=== PATIENT | male | born 1970 | race African-American/Black ===

== ENCOUNTER 2018-12-22 19:11 | Emergency (ER) | payer MEDICAID ==
[~2018-12-22] VITALS: Ht 177.8 cm; Wt 73.0 kg
[2018-12-22] MEDS ORDERED: TETANUS, DIPHTHERIA, PERTUSSIS VAC/PF 0.5ML (>7YR OLD) IM ONE (21:00)
[2018-12-22] MEDS ORDERED: BACITRACIN ZINC OINT UDPKT TOP ONE (21:30)
[2018-12-22] MEDS ORDERED: LIDOCAINE HCL/PF 1% 10 MG/ML 5ML VIAL IJ ONE (21:30)
[2018-12-22] MEDS ORDERED: BACITRACIN 15GM TUBE TOP SCH (22:00)
[2018-12-22] MEDS ORDERED: CEPHALEXIN 250MG CAPSULE PO ONE (22:00)
[2018-12-22 22:38] VITALS: BP 160/91
== END 2018-12-22 22:40 | disposition home or self-care (01) ==
LOC: ER 19:11
DX: S61.512A Laceration without foreign body of left wrist, initial encounter (principal); I10 Essential (primary) hypertension; F41.9 Anxiety disorder, unspecified; W26.8XXA Contact with other sharp object(s), not elsewhere classified, initial encounter; Y93.55 Activity, bike riding; Y92.89 Other specified places as the place of occurrence of the external cause
CPT/HCPCS: 12002; 73110; 90471; 90715; 99283; J3490

== ENCOUNTER 2022-02-04 07:38 | Emergency (ER) | payer OTHER ==
[~2022-02-04] VITALS: Ht 175.3 cm; Wt 81.0 kg
[2022-02-04] MEDS ORDERED: IPRATROPIUM BROMIDE (0.02%) 0.5MG/2.5ML NEB HHN STA (07:59)
[2022-02-04] MEDS ORDERED: METHYLPREDNISOLONE SOD SUCC 125 MG/2 ML VIAL IV STA (07:59)
[2022-02-04] MEDS ORDERED: ALBUTEROL (0.083%) 2.5MG/3ML NEB HHN STA (07:59)
[2022-02-04] MEDS ORDERED: NITROGLYCERIN 0.1MG/HR PATCH TOP NR (08:45)
[2022-02-04] MEDS ORDERED: HYDRALAZINE 20MG/ML VIAL IV SCH (08:45)
[2022-02-04] MEDS ORDERED: NITROGLYCERIN OINT 1GM/INCH UDPKT TD SCH (08:45)
[2022-02-04] MEDS ORDERED: FUROSEMIDE 40MG/4ML VIAL IV NR (08:45)
[2022-02-04 09:14] LABS: BASOPHILS % 0.9 % (0.0-2.0); EOSINOPHILS % 0.8 % (0.0-5.0); HEMATOCRIT. 32.4 % (42.0-52.0); HEMOGLOBIN. 10.5 g/dL (14.0-18.0); LYMPHOCYTES % 19.4 % (20.0-50.0); MEAN CORPUSCULAR HEMOGLOBIN 27.1 pg (28.0-32.0); MEAN CORPUSCULAR VOLUME 83.4 fL (80.0-94.0); MEAN PLATELET VOLUME 7.6 fl (7.4-10.4); MONOCYTES % 13.1 % (2.0-8.0); NEUTROPHILS % 65.8 % (40.0-76.0); PLATELET 216 x1000/uL (130-400); RED BLOOD CELL COUNT 3.89 mill/uL (4.7-6.1)
[2022-02-04 09:22] LABS: CHLORIDE 100 mEq/L (98-107)
[2022-02-04 10:06] LABS: CLARITY URINE CLEAR (CLEAR); COLOR URINE YELLOW (YELLOW); KETONES URINE NEGATIVE (NEGATIVE); LEUKOCYTE ESTERASE URINE NEGATIVE (NEGATIVE); NITRITE URINE NEGATIVE (NEGATIVE); OCCULT BLOOD URINE TRACE (NEGATIVE); PROTEIN URINE 1+ (NEGATIVE); SPECIFIC GRAVITY URINE 1.009 (1.005-1.030)
[2022-02-04] MEDS ORDERED: ONDANSETRON HCL 4MG/2ML INJ IV ONE (11:00)
[2022-02-04] MEDS ORDERED: MORPHINE SULFATE 4 MG/ML CPJ (NOT FOR IM USE) IV ONE (11:00)
[2022-02-04] MEDS ORDERED: HYDRALAZINE 20MG/ML VIAL IV ONE (15:30)
[2022-02-04 16:40] VITALS: BP 178/125
== END 2022-02-04 16:43 | disposition short-term general hospital (02) ==
LOC: ER 07:38 → EDBEDREQ 10:04 → CANBEDREQ 10:59 → ER 16:43
DX: I21.3 ST elevation (STEMI) myocardial infarction of unspecified site (principal); I10 Essential (primary) hypertension; N17.9 Acute kidney failure, unspecified; F17.200 Nicotine dependence, unspecified, uncomplicated; F12.10 Cannabis abuse, uncomplicated; R06.02 Shortness of breath; J45.909 Unspecified asthma, uncomplicated; Z20.822 Contact with and (suspected) exposure to COVID-19
CPT/HCPCS: 36415; 71045; 80053; 81003; 83735; 83880; 84484; 85025; 87426; 87804; 93005; 93970; 94640; 96374; 96375; 96376; 99285; C9803; J0360; J1940; J2270; J2405; J2930; Z7610

== ENCOUNTER 2022-03-09 14:08 | Inpatient (IN) | payer OTHER ==
[~2022-03-09] VITALS: Ht 175.3 cm; Wt 66.2 kg
[2022-03-09] MEDS ORDERED: ASPIRIN 81MG TABLET PO ONE (14:45)
[2022-03-09] MEDS ORDERED: LABETALOL HCL VIAL 20 MG/4 ML VIAL IV ONE ×2 (15:00→17:00)
[2022-03-09] MEDS ORDERED: LABETALOL 5MG/ML SYR 20 MG/4 ML SYRINGE IV NR ×2 (15:00→17:15)
[2022-03-09 15:08] LABS: BASOPHILS % 0.8 % (0.0-2.0); CHLORIDE 107 mEq/L (98-107); EOSINOPHILS % 1.1 % (0.0-5.0); HEMATOCRIT. 32.2 % (42.0-52.0); HEMOGLOBIN. 10.4 g/dL (14.0-18.0); MEAN CORPUSCULAR HEMOGLOBIN 25.4 pg (28.0-32.0); MEAN CORPUSCULAR VOLUME 78.7 fL (80.0-94.0); MEAN PLATELET VOLUME 7.4 fl (7.4-10.4); MONOCYTES % 10.2 % (2.0-8.0); NEUTROPHILS % 62.9 % (40.0-76.0); PLATELET 371 x1000/uL (130-400); RED BLOOD CELL COUNT 4.09 mill/uL (4.7-6.1); RED CELL DISTRIBUTION WIDTH 16.9 % (11.6-14.6)
[2022-03-09 15:14] LABS: D-DIMER 1.29 mg/L FEU (<0.50); INR 1.1; PARTIAL THROMBOPLASTIN TIME 23.5 sec (23.4-31.0); PROTHROMBIN TIME 11.8 sec (9.6-11.0)
[2022-03-09] MEDS ORDERED: FUROSEMIDE 100MG/10ML VIAL IVP ONE (16:15)
[2022-03-09] MEDS ORDERED: IPRATROPIUM/ALBUTEROL 0.5-3(2.5)MG/3ML NEB HHN PRN (19:00)
[2022-03-09] MEDS: AMLODIPINE 10MG TABLET PO SCH (19:16)
[2022-03-09 20:54] LABS: BG BASE EXCESS -2.7 mmol/L (-2.0-2.0); BG CARBOXYHEMOGLOBIN 0.6 % (0.5-1.5); BG DEOXYHEMOGLOBIN 6.9 % (0.0-5.0); BG METHEMOGLOBIN 0.6 % (0.0-1.5); BG OXYHEMOGLOBIN 91.9 % (94.0-97.0); BG PCO2 32.8 mmHg (35.0-45.0); BG PH 7.425 (7.350-7.450); BG PO2 70.6 mmHg (75.0-100.0); BG SAMPLE SITE RIGHT RADIAL; BG TOTAL HEMOGLOBIN 10.4 g/dL (12.0-18.0); BG VENT MODE ROOM AIR
[2022-03-09 20:54] LABS: BASOPHILS % 0.6 % (0.0-2.0); HEMOGLOBIN. 9.4 g/dL (14.0-18.0); LYMPHOCYTES % 23.3 % (20.0-50.0); MEAN CORPUSCULAR HEMOGLOBIN 25.6 pg (28.0-32.0); MEAN CORPUSCULAR VOLUME 79.2 fL (80.0-94.0); MONOCYTES % 8.1 % (2.0-8.0); PLATELET 332 x1000/uL (130-400); RED BLOOD CELL COUNT 3.66 mill/uL (4.7-6.1); RED CELL DISTRIBUTION WIDTH 17.2 % (11.6-14.6)
[2022-03-09 21:08] LABS: CHLORIDE 104 mEq/L (98-107)
[2022-03-10] VITALS (7 sets, daily range): BP systolic 112–182; BP diastolic 66–129
[2022-03-10] MEDS: HYDRALAZINE 20MG/ML VIAL IV PRN (02:42)
[2022-03-10] MEDS: CLONIDINE 0.2MG TABLET PO PRN (06:28)
[2022-03-10] MEDS: HYDRALAZINE HCL 50MG TABLET PO SCH ×3 (06:28→21:13)
[2022-03-10] MEDS: FUROSEMIDE 40MG/4ML VIAL IVP SCH ×2 (06:28→16:37)
[2022-03-10 08:29] LABS: BASOPHILS % 0.7 % (0.0-2.0); EOSINOPHILS % 1.1 % (0.0-5.0); HEMATOCRIT. 31.3 % (42.0-52.0); HEMOGLOBIN. 10.2 g/dL (14.0-18.0); LYMPHOCYTES % 21.5 % (20.0-50.0); MEAN CORPUSCULAR VOLUME 77.2 fL (80.0-94.0); MEAN PLATELET VOLUME 7.3 fl (7.4-10.4); MONOCYTES % 8.2 % (2.0-8.0); NEUTROPHILS % 68.5 % (40.0-76.0); PLATELET 357 x1000/uL (130-400); RED BLOOD CELL COUNT 4.06 mill/uL (4.7-6.1); RED CELL DISTRIBUTION WIDTH 16.8 % (11.6-14.6)
[2022-03-10] MEDS: AMLODIPINE 10MG TABLET PO SCH (08:50)
[2022-03-10] MEDS: HEPARIN 5000 UNITS/ML VIAL SUBCUT SCH ×2 (08:51→21:13)
[2022-03-10] MEDS: CARVEDILOL 6.25 MG TABLET PO SCH ×2 (10:27→21:13)
[2022-03-10] MEDS ORDERED: POTASSIUM CHLORIDE 20MEQ TABLET SR PO NR (12:00)
[2022-03-10 20:21] LABS: CLARITY URINE CLEAR (CLEAR); COLOR URINE YELLOW (YELLOW); KETONES URINE NEGATIVE (NEGATIVE); LEUKOCYTE ESTERASE URINE NEGATIVE (NEGATIVE); NITRITE URINE NEGATIVE (NEGATIVE); OCCULT BLOOD URINE NEGATIVE (NEGATIVE); PH URINE 6.5 (4.5-8.0); PROTEIN URINE TRACE (NEGATIVE); SPECIFIC GRAVITY URINE 1.009 (1.005-1.030)
[2022-03-11] VITALS: BP 153/89
[2022-03-11 04:00] VITALS: BP 163/80
[2022-03-11] MEDS: HYDRALAZINE HCL 50MG TABLET PO SCH ×3 (05:08→22:30)
[2022-03-11] MEDS: CLONIDINE 0.2MG TABLET PO PRN ×2 (05:09→17:11)
[2022-03-11] MEDS: FUROSEMIDE 40MG/4ML VIAL IVP SCH ×2 (06:19→17:11)
[2022-03-11 08:00] VITALS: BP 153/100
[2022-03-11] MEDS: AMLODIPINE 10MG TABLET PO SCH (09:00)
[2022-03-11] MEDS: CARVEDILOL 6.25 MG TABLET PO SCH ×2 (09:00→21:31)
[2022-03-11] MEDS: HEPARIN 5000 UNITS/ML VIAL SUBCUT SCH ×2 (09:01→21:29)
[2022-03-11 12:00] VITALS: BP 150/110
[2022-03-11 16:00] VITALS: BP 158/100
[2022-03-11 20:00] VITALS: BP 153/100
[2022-03-12 00:01] VITALS: BP 156/108
[2022-03-12 04:00] VITALS: BP 158/100
[2022-03-12] MEDS: HYDRALAZINE HCL 50MG TABLET PO SCH ×3 (06:03→22:00)
[2022-03-12] MEDS: FUROSEMIDE 40MG/4ML VIAL IVP SCH ×2 (06:13→17:40)
[2022-03-12 08:00] VITALS: BP 148/110
[2022-03-12] MEDS: AMLODIPINE 10MG TABLET PO SCH (08:23)
[2022-03-12] MEDS: CARVEDILOL 6.25 MG TABLET PO SCH ×2 (08:23→21:00)
[2022-03-12] MEDS: HEPARIN 5000 UNITS/ML VIAL SUBCUT SCH ×2 (08:23→21:00)
[2022-03-12 12:12] VITALS: BP 150/111
[2022-03-12] MEDS: CLONIDINE 0.2MG TABLET PO PRN (12:18)
[2022-03-12 14:03] LABS: BASOPHILS % 0.6 % (0.0-2.0); EOSINOPHILS % 3.8 % (0.0-5.0); HEMATOCRIT. 30.8 % (42.0-52.0); HEMOGLOBIN. 9.6 g/dL (14.0-18.0); LYMPHOCYTES % 20.4 % (20.0-50.0); MEAN CORPUSCULAR HEMOGLOBIN 25.1 pg (28.0-32.0); MEAN CORPUSCULAR VOLUME 80.5 fL (80.0-94.0); MEAN PLATELET VOLUME 7.5 fl (7.4-10.4); MONOCYTES % 9.9 % (2.0-8.0); NEUTROPHILS % 65.3 % (40.0-76.0); PLATELET 363 x1000/uL (130-400); RED BLOOD CELL COUNT 3.82 mill/uL (4.7-6.1); RED CELL DISTRIBUTION WIDTH 16.8 % (11.6-14.6)
[2022-03-12 16:00] VITALS: BP 140/99
[2022-03-12 20:00] VITALS: BP_SYST 104; BP_SYST 165; BP_DIAS 103; BP_DIAS 68
[2022-03-13] VITALS (7 sets, daily range): BP systolic 127–174; BP diastolic 87–110
[2022-03-13] MEDS: HYDRALAZINE 20MG/ML VIAL IV PRN (02:22)
[2022-03-13] MEDS: HYDRALAZINE HCL 50MG TABLET PO SCH ×3 (05:56→21:28)
[2022-03-13] MEDS: FUROSEMIDE 40MG/4ML VIAL IVP SCH ×2 (06:19→16:40)
[2022-03-13 07:11] LABS: BASOPHILS % 0.6 % (0.0-2.0); EOSINOPHILS % 3.8 % (0.0-5.0); HEMATOCRIT. 31.1 % (42.0-52.0); LYMPHOCYTES % 18.1 % (20.0-50.0); MEAN CORPUSCULAR HEMOGLOBIN 25.2 pg (28.0-32.0); MEAN CORPUSCULAR VOLUME 78.2 fL (80.0-94.0); MEAN PLATELET VOLUME 7.4 fl (7.4-10.4); NEUTROPHILS % 68.5 % (40.0-76.0); PLATELET 395 x1000/uL (130-400); RED BLOOD CELL COUNT 3.98 mill/uL (4.7-6.1); RED CELL DISTRIBUTION WIDTH 17.1 % (11.6-14.6)
[2022-03-13] MEDS: AMLODIPINE 10MG TABLET PO SCH (08:20)
[2022-03-13] MEDS: CARVEDILOL 6.25 MG TABLET PO SCH ×2 (08:20→21:28)
[2022-03-13] MEDS: HEPARIN 5000 UNITS/ML VIAL SUBCUT SCH ×2 (08:20→21:29)
[2022-03-13] MEDS: CLONIDINE 0.2MG TABLET PO PRN ×2 (08:20→16:00)
[2022-03-14] VITALS (7 sets, daily range): BP systolic 136–152; BP diastolic 90–104
[2022-03-14] MEDS: CLONIDINE 0.2MG TABLET PO PRN (02:36)
[2022-03-14] MEDS: HYDRALAZINE HCL 50MG TABLET PO SCH (05:14)
[2022-03-14] MEDS: FUROSEMIDE 40MG/4ML VIAL IVP SCH (07:12)
[2022-03-14] MEDS: AMLODIPINE 10MG TABLET PO SCH (08:29)
[2022-03-14] MEDS: CARVEDILOL 6.25 MG TABLET PO SCH (08:29)
[2022-03-14] MEDS: HEPARIN 5000 UNITS/ML VIAL SUBCUT SCH (08:30)
[2022-03-14] MEDS ORDERED: COR6 PO (11:45)
[2022-03-14] MEDS ORDERED: HYDR-4135 PO (11:45)
[2022-03-14] MEDS ORDERED: FURO-151 MT (11:45)
[2022-03-14] MEDS ORDERED: AMLO10TA80 PO (11:45)
== END 2022-03-14 13:30 | disposition home or self-care (01) | DRG 194 ==
LOC: ER 14:21 → 8WST 16:37 → EDBEDREQSVC 16:38 → EDBEDREQ 16:38 → EDBEDREQTM 16:38 → EDBEDREQ 16:39 → EDBEDREQSVC 03-10 02:03 → ENRESERV 03-10 03:27
PROVIDERS: ADMIT Internal Medicine; ATTEND Internal Medicine
PROC: 5A09357 Assistance with Respiratory Ventilation, Less than 24 Consecutive Hours, Continuous Positive Airway Pressure (ICD-10-PCS; principal; 2022-03-09)
DX: I13.0 Hypertensive heart and chronic kidney disease with heart failure and stage 1 through stage 4 chronic kidney disease, or unspecified chronic kidney disease (principal); I21.4 Non-ST elevation (NSTEMI) myocardial infarction; N17.9 Acute kidney failure, unspecified; E46 Unspecified protein-calorie malnutrition; Z20.822 Contact with and (suspected) exposure to COVID-19; I16.1 Hypertensive emergency; I50.21 Acute systolic (congestive) heart failure; D63.1 Anemia in chronic kidney disease; E87.6 Hypokalemia; N18.30 Chronic kidney disease, stage 3 unspecified; I25.10 Atherosclerotic heart disease of native coronary artery without angina pectoris; J45.901 Unspecified asthma with (acute) exacerbation; I25.2 Old myocardial infarction; Z91.14 Patient's other noncompliance with medication regimen; Z68.21 Body mass index [BMI] 21.0-21.9, adult
CPT/HCPCS: 36415; 36600; 71045; 76770; 80048; 80053; 81003; 82375; 82550; 82570; 82805; 83605; 83735; 83880; 84145; 84300; 84484; 85025; 85379; 87426; 93005; 99291; C9803; J0360; J1644; J1940; J3490

== ENCOUNTER 2022-05-06 08:57 | Inpatient (IN) | payer OTHER ==
[~2022-05-06] VITALS: Ht 175.3 cm; Wt 75.9 kg
[~2022-05-06 08:57] MED LIST: AMLO10TA80 PO; COR6 PO; FURO-151 MT; HYDR-4135 PO
[2022-05-06 10:33] LABS: BASOPHILS % 0.6 % (0.0-2.0); EOSINOPHILS % 2.8 % (0.0-5.0); LYMPHOCYTES % 20.5 % (20.0-50.0); MEAN CORPUSCULAR HEMOGLOBIN 21.9 pg (28.0-32.0); MEAN CORPUSCULAR VOLUME 70.1 fL (80.0-94.0); MEAN PLATELET VOLUME 7.4 fl (7.4-10.4); MONOCYTES % 12.7 % (2.0-8.0); NEUTROPHILS % 63.4 % (40.0-76.0); PLATELET 306 x1000/uL (130-400); RED BLOOD CELL COUNT 4.14 mill/uL (4.7-6.1); RED CELL DISTRIBUTION WIDTH 18.6 % (11.6-14.6)
[2022-05-06 10:40] LABS: CHLORIDE 110 mEq/L (98-107)
[2022-05-06] MEDS ORDERED: FUROSEMIDE 40MG/4ML VIAL IVP ONE (11:00)
[2022-05-06] MEDS ORDERED: NITROGLYCERIN 0.4MG TABLET SL SL ONE (11:00)
[2022-05-06] MEDS ORDERED: ASPIRIN 81MG TABLET PO ONE (11:00)
[2022-05-06] MEDS ORDERED: ENOXAPARIN 80MG/0.8ML SYR SUBCUT ONE (11:30)
[2022-05-06] MEDS ORDERED: HYDRALAZINE 20MG/ML VIAL IV ONE ×2 (12:45→13:45)
[2022-05-06] MEDS: METOPROLOL TARTRATE 100MG TABLET PO SCH ×2 (14:45→22:50)
[2022-05-06] MEDS: AMLODIPINE 5MG TABLET PO SCH ×2 (14:45→22:50)
[2022-05-06] MEDS: FUROSEMIDE 40MG/4ML VIAL IVP SCH (17:42)
[2022-05-06] MEDS: HYDRALAZINE 20MG/ML VIAL IV PRN (18:29)
[2022-05-06 18:52] LABS: *AMPHETAMINES SCREEN URINE NEGATIVE (NEGATIVE); *BARBITURATES SCREEN URINE NEGATIVE (NEGATIVE); *BENZODIAZEPINES SCREEN URINE NEGATIVE (NEGATIVE); *COCAINE SCREEN URINE NEGATIVE (NEGATIVE); CANNABINOID URINE SCREEN NEGATIVE (NEGATIVE); METHADONE URINE SCREEN NEGATIVE (NEGATIVE); OPIATES URINE SCREEN NEGATIVE (NEGATIVE); PHENCYCLIDINE URINE SCREEN NEGATIVE (NEGATIVE)
[2022-05-07] VITALS (7 sets, daily range): BP systolic 159–181; BP diastolic 102–134
[2022-05-07 05:40] LABS: BASOPHILS % 0.4 % (0.0-2.0); EOSINOPHILS % 3.7 % (0.0-5.0); HEMATOCRIT. 27.6 % (42.0-52.0); HEMOGLOBIN. 8.7 g/dL (14.0-18.0); LYMPHOCYTES % 16.7 % (20.0-50.0); MEAN CORPUSCULAR HEMOGLOBIN 21.8 pg (28.0-32.0); MEAN CORPUSCULAR VOLUME 68.8 fL (80.0-94.0); MEAN PLATELET VOLUME 7.4 fl (7.4-10.4); MONOCYTES % 14.6 % (2.0-8.0); NEUTROPHILS % 64.6 % (40.0-76.0); PLATELET 319 x1000/uL (130-400); RED BLOOD CELL COUNT 4.01 mill/uL (4.7-6.1); RED CELL DISTRIBUTION WIDTH 18.7 % (11.6-14.6)
[2022-05-07] MEDS: AMLODIPINE 5MG TABLET PO SCH ×2 (09:10→20:47)
[2022-05-07] MEDS: FUROSEMIDE 40MG/4ML VIAL IVP SCH (09:11)
[2022-05-07] MEDS: METOPROLOL TARTRATE 100MG TABLET PO SCH ×2 (09:14→20:46)
[2022-05-07] MEDS ORDERED: POTASSIUM CHLORIDE 20MEQ TABLET SR PO SCH (10:00)
[2022-05-07] MEDS: HYDRALAZINE HCL 50MG TABLET PO SCH ×3 (10:24→21:38)
[2022-05-07 12:39] LABS: PLATELET ESTIMATE NORMAL
[2022-05-07] MEDS ORDERED: IPRATROPIUM BROMIDE (0.02%) 0.5MG/2.5ML NEB HHN PRN (16:15)
[2022-05-07] MEDS ORDERED: ALBUTEROL (0.083%) 2.5MG/3ML NEB HHN PRN (16:15)
[2022-05-07] MEDS ORDERED: IPRATROPIUM/ALBUTEROL 0.5-3(2.5)MG/3ML NEB HHN PRN (16:15)
[2022-05-07] MEDS: NITROGLYCERIN OINT 1GM/INCH UDPKT TD SCH ×2 (18:19→21:39)
[2022-05-07] MEDS ORDERED: HYDR100T26 PO (18:51)
[2022-05-08] VITALS (12 sets, daily range): BP systolic 153–198; BP diastolic 97–140
[2022-05-08] MEDS: HYDRALAZINE 20MG/ML VIAL IV PRN ×3 (01:49→13:24)
[2022-05-08 06:30] LABS: BASOPHILS % 0.5 % (0.0-2.0); EOSINOPHILS % 4.9 % (0.0-5.0); HEMATOCRIT. 28.5 % (42.0-52.0); HEMOGLOBIN. 8.7 g/dL (14.0-18.0); LYMPHOCYTES % 16.6 % (20.0-50.0); MEAN CORPUSCULAR HEMOGLOBIN 21.4 pg (28.0-32.0); MEAN CORPUSCULAR VOLUME 69.7 fL (80.0-94.0); MEAN PLATELET VOLUME 7.5 fl (7.4-10.4); MONOCYTES % 10.8 % (2.0-8.0); NEUTROPHILS % 67.2 % (40.0-76.0); PLATELET 307 x1000/uL (130-400); RED BLOOD CELL COUNT 4.08 mill/uL (4.7-6.1); RED CELL DISTRIBUTION WIDTH 18.9 % (11.6-14.6)
[2022-05-08] MEDS: NITROGLYCERIN OINT 1GM/INCH UDPKT TD SCH ×2 (06:32→13:24)
[2022-05-08] MEDS: HYDRALAZINE HCL 50MG TABLET PO SCH ×2 (06:32→13:24)
[2022-05-08] MEDS ORDERED: FUROSEMIDE 40MG/4ML VIAL IVP SCH (09:00)
[2022-05-08] MEDS ORDERED: HYDR-4135 PO (09:10)
[2022-05-08] MEDS ORDERED: AMLO10TA80 PO (09:10)
[2022-05-08] MEDS ORDERED: POTA-189 MT (09:10)
[2022-05-08] MEDS ORDERED: FURO-151 MT (09:10)
[2022-05-08] MEDS ORDERED: COR6 PO (09:10)
[2022-05-08] MEDS: METOPROLOL TARTRATE 100MG TABLET PO SCH (09:18)
[2022-05-08] MEDS: AMLODIPINE 5MG TABLET PO SCH (09:19)
== END 2022-05-08 18:55 | disposition home or self-care (01) | DRG 194 ==
LOC: ER 08:57 → MICUSO 13:59 → EDBEDREQ 14:04 → 5EST 05-07 12:05
PROVIDERS: ADMIT Internal Medicine; ATTEND Internal Medicine
DX: I13.0 Hypertensive heart and chronic kidney disease with heart failure and stage 1 through stage 4 chronic kidney disease, or unspecified chronic kidney disease (principal); J96.00 Acute respiratory failure, unspecified whether with hypoxia or hypercapnia; I21.A1 Myocardial infarction type 2; E44.0 Moderate protein-calorie malnutrition; I27.20 Pulmonary hypertension, unspecified; D50.9 Iron deficiency anemia, unspecified; F17.200 Nicotine dependence, unspecified, uncomplicated; I42.9 Cardiomyopathy, unspecified; I50.31 Acute diastolic (congestive) heart failure; N18.9 Chronic kidney disease, unspecified; E78.5 Hyperlipidemia, unspecified; I25.10 Atherosclerotic heart disease of native coronary artery without angina pectoris; J44.9 Chronic obstructive pulmonary disease, unspecified; Z68.24 Body mass index [BMI] 24.0-24.9, adult; I25.2 Old myocardial infarction; Z79.899 Other long term (current) drug therapy; Z91.199 Patient's noncompliance with other medical treatment and regimen due to unspecified reason
CPT/HCPCS: 36415; 71045; 80048; 80053; 80305; 82962; 83735; 83880; 84484; 85025; 93005; 99291; J0360; J1650; J1940

== ENCOUNTER 2022-06-26 12:52 | Inpatient (IN) | payer OTHER ==
[~2022-06-26] VITALS: Ht 175.3 cm; Wt 68.6 kg
[~2022-06-26 12:52] MED LIST changes: +POTA-189 MT
[2022-06-26 15:50] LABS: BG BASE EXCESS -5.5 mmol/L (-2.0-2.0); BG CARBOXYHEMOGLOBIN 0.9 % (0.5-1.5); BG DEOXYHEMOGLOBIN 2.2 % (0.0-5.0); BG FRACTION INSPIRED OXYGEN 21; BG METHEMOGLOBIN 0.1 % (0.0-1.5); BG OXYGEN SATURATION 97.8 % (92.0-98.5); BG OXYHEMOGLOBIN 96.8 % (94.0-97.0); BG PCO2 23.7 mmHg (35.0-45.0); BG PH 7.473 (7.350-7.450); BG PO2 104.1 mmHg (75.0-100.0); BG SAMPLE SITE RIGHT RADIAL; BG TOTAL HEMOGLOBIN 9.3 g/dL (12.0-18.0); BG VENT MODE ROOM AIR
[2022-06-26 16:06] LABS: BASOPHILS % 0.8 % (0.0-2.0); EOSINOPHILS % 3.3 % (0.0-5.0); HEMOGLOBIN. 8.6 g/dL (14.0-18.0); LYMPHOCYTES % 23.4 % (20.0-50.0); MEAN CORPUSCULAR HEMOGLOBIN 19.6 pg (28.0-32.0); MEAN CORPUSCULAR VOLUME 66.5 fL (80.0-94.0); MEAN PLATELET VOLUME 7.1 fl (7.4-10.4); MONOCYTES % 11.1 % (2.0-8.0); NEUTROPHILS % 61.4 % (40.0-76.0); PLATELET 452 x1000/uL (130-400); RED BLOOD CELL COUNT 4.36 mill/uL (4.7-6.1); RED CELL DISTRIBUTION WIDTH 20.6 % (11.6-14.6)
[2022-06-26 16:11] LABS: CHLORIDE 106 mEq/L (98-107)
[2022-06-26 16:27] LABS: PLATELET ESTIMATE INCREASED
[2022-06-26] MEDS ORDERED: FUROSEMIDE 40MG/4ML VIAL IVP ONE (16:30)
[2022-06-26] MEDS ORDERED: NITROGLYCERIN 0.4MG TABLET SL SL ONE (16:30)
[2022-06-26] MEDS ORDERED: NITROGLYCERIN 50MG PREMIX 250 ML IV ONE ×2 (16:45→17:30)
[2022-06-26] MEDS ORDERED: ASPIRIN 81MG TABLET PO ONE (16:45)
[2022-06-26] MEDS ORDERED: CARVEDILOL 6.25 MG TABLET PO ONE (20:30)
[2022-06-26] MEDS ORDERED: AMLODIPINE 10MG TABLET PO ONE (20:30)
[2022-06-26] MEDS ORDERED: HYDRALAZINE HCL 50MG TABLET PO ONE (20:30)
[2022-06-26] MEDS ORDERED: ACETAMINOPHEN 325MG TABLET PO PRN (21:45)
[2022-06-26] MEDS ORDERED: AMLODIPINE 5MG TABLET PO NR (21:45)
[2022-06-26] MEDS ORDERED: ONDANSETRON HCL 4MG/2ML INJ IV PRN (21:45)
[2022-06-26] MEDS ORDERED: DOCUSATE SODIUM 100MG CAPSULE PO PRN (21:45)
[2022-06-26] MEDS ORDERED: IPRATROPIUM/ALBUTEROL 0.5-3(2.5)MG/3ML NEB HHN PRN (21:45)
[2022-06-26] MEDS ORDERED: FUROSEMIDE 40MG/4ML VIAL IVP NR (21:45)
[2022-06-26] MEDS ORDERED: HYDRALAZINE HCL 25MG TABLET PO NR (21:45)
[2022-06-26 22:09] LABS: CLARITY URINE CLEAR (CLEAR); COLOR URINE YELLOW (YELLOW); KETONES URINE NEGATIVE (NEGATIVE); LEUKOCYTE ESTERASE URINE NEGATIVE (NEGATIVE); NITRITE URINE NEGATIVE (NEGATIVE); OCCULT BLOOD URINE NEGATIVE (NEGATIVE); PH URINE 5.5 (4.5-8.0); PROTEIN URINE 2+ (NEGATIVE); SPECIFIC GRAVITY URINE 1.008 (1.005-1.030)
[2022-06-26 22:21] LABS: TOTAL IRON BINDING CAPACITY 382 ug/dL (250-450)
[2022-06-26 22:21] LABS: *AMPHETAMINES SCREEN URINE NEGATIVE (NEGATIVE); *BARBITURATES SCREEN URINE NEGATIVE (NEGATIVE); *BENZODIAZEPINES SCREEN URINE NEGATIVE (NEGATIVE); *COCAINE SCREEN URINE NEGATIVE (NEGATIVE); CANNABINOID URINE SCREEN NEGATIVE (NEGATIVE); METHADONE URINE SCREEN NEGATIVE (NEGATIVE); OPIATES URINE SCREEN NEGATIVE (NEGATIVE); PHENCYCLIDINE URINE SCREEN NEGATIVE (NEGATIVE)
[2022-06-26 22:50] LABS: FOLIC ACID (FOLATE) SERUM 19.8 ng/mL (>5.38)
[2022-06-26] MEDS ORDERED: ENOXAPARIN 30MG/0.3ML SYR SUBCUT SCH (23:00)
[2022-06-26 23:10] LABS: CREATINE KINASE MB FRACTION 2.1 ng/mL (0.5-3.6)
[2022-06-27] VITALS (28 sets, daily range): BP systolic 119–180; BP diastolic 88–138
[2022-06-27] MEDS ORDERED: HYDRALAZINE HCL 10MG TABLET PO PRN (03:45)
[2022-06-27] MEDS ORDERED: NITROGLYCERIN 0.4MG TABLET SL SL PRN (03:45)
[2022-06-27] MEDS: ASPIRIN 81MG EC TABLET PO SCH (08:52)
[2022-06-27] MEDS: PANTOPRAZOLE 40MG DR TABLET PO SCH (08:53)
[2022-06-27] MEDS: MULTIVITAMINS,THER W-MINERALS TABLET PO SCH (08:53)
[2022-06-27] MEDS: AMLODIPINE 10MG TABLET PO SCH (08:53)
[2022-06-27] MEDS: HYDRALAZINE HCL 50MG TABLET PO SCH ×3 (08:54→21:40)
[2022-06-27 10:46] LABS: BASOPHILS % 0.6 % (0.0-2.0); EOSINOPHILS % 4.9 % (0.0-5.0); HEMATOCRIT. 27.4 % (42.0-52.0); HEMOGLOBIN. 8.1 g/dL (14.0-18.0); LYMPHOCYTES % 22.7 % (20.0-50.0); MEAN CORPUSCULAR HEMOGLOBIN 19.8 pg (28.0-32.0); MEAN CORPUSCULAR VOLUME 66.6 fL (80.0-94.0); MEAN PLATELET VOLUME 7.2 fl (7.4-10.4); MONOCYTES % 9.5 % (2.0-8.0); NEUTROPHILS % 62.3 % (40.0-76.0); PLATELET 389 x1000/uL (130-400); RED BLOOD CELL COUNT 4.11 mill/uL (4.7-6.1); RED CELL DISTRIBUTION WIDTH 19.7 % (11.6-14.6)
[2022-06-27 10:59] LABS: CHLORIDE 106 mEq/L (98-107)
[2022-06-27 11:07] LABS: CREATINE KINASE MB FRACTION 2.3 ng/mL (0.5-3.6)
[2022-06-27 11:15] LABS: T4 FREE 1.36 ng/dL (0.76-1.46)
[2022-06-27] MEDS: GUAIFENESIN 200MG/10ML SUGAR FREE UDC PO PRN (15:52)
[2022-06-27] MEDS ORDERED: CLONIDINE 0.1MG TABLET PO PRN (16:45)
[2022-06-27] MEDS ORDERED: ZOLPIDEM TARTRATE 5MG TABLET PO PRN (16:45)
[2022-06-27 17:04] LABS: CREATINE KINASE MB FRACTION 2.4 ng/mL (0.5-3.6)
[2022-06-27] MEDS: BUDESONIDE 0.5MG/2ML NEB HHN SCH (17:11)
[2022-06-27] MEDS: IPRATROPIUM/ALBUTEROL 0.5-3(2.5)MG/3ML NEB HHN SCH (17:11)
[2022-06-27] MEDS: CLONIDINE 0.1MG TABLET PO SCH (17:14)
[2022-06-27] MEDS: FUROSEMIDE 40MG/4ML VIAL IVP SCH (17:14)
[2022-06-27] MEDS ORDERED: AMLODIPINE 5MG TABLET PO NR (20:30)
[2022-06-27] MEDS: CLONIDINE 0.2MG TABLET PO PRN (23:56)
[2022-06-28] MEDS: IPRATROPIUM/ALBUTEROL 0.5-3(2.5)MG/3ML NEB HHN SCH ×2 (01:53→08:54)
[2022-06-28 04:00] VITALS: BP 156/111
[2022-06-28] MEDS: CLONIDINE 0.2MG TABLET PO PRN (04:10)
[2022-06-28] MEDS: CLONIDINE 0.1MG TABLET PO SCH (06:01)
[2022-06-28] MEDS: PANTOPRAZOLE 40MG DR TABLET PO SCH (06:01)
[2022-06-28] MEDS: HYDRALAZINE HCL 50MG TABLET PO SCH ×2 (06:01→13:53)
[2022-06-28 07:51] LABS: BASOPHILS % 0.4 % (0.0-2.0); EOSINOPHILS % 4.8 % (0.0-5.0); HEMATOCRIT. 23.3 % (42.0-52.0); HEMOGLOBIN. 7.1 g/dL (14.0-18.0); LYMPHOCYTES % 15.1 % (20.0-50.0); MEAN CORPUSCULAR HEMOGLOBIN 20.4 pg (28.0-32.0); MEAN CORPUSCULAR VOLUME 66.8 fL (80.0-94.0); MEAN PLATELET VOLUME 7.2 fl (7.4-10.4); NEUTROPHILS % 69.7 % (40.0-76.0); PLATELET 311 x1000/uL (130-400); RED BLOOD CELL COUNT 3.49 mill/uL (4.7-6.1); RED CELL DISTRIBUTION WIDTH 20.3 % (11.6-14.6)
[2022-06-28 08:26] VITALS: BP 138/98
[2022-06-28] MEDS: ASPIRIN 81MG EC TABLET PO SCH (08:47)
[2022-06-28] MEDS: MULTIVITAMINS,THER W-MINERALS TABLET PO SCH (08:47)
[2022-06-28] MEDS: FUROSEMIDE 40MG/4ML VIAL IVP SCH (08:48)
[2022-06-28] MEDS: AMLODIPINE 10MG TABLET PO SCH (08:51)
[2022-06-28] MEDS: BUDESONIDE 0.5MG/2ML NEB HHN SCH (08:53)
[2022-06-28] MEDS ORDERED: CARVEDILOL 6.25 MG TABLET PO SCH (09:00)
[2022-06-28] MEDS: GUAIFENESIN 200MG/10ML SUGAR FREE UDC PO PRN (09:01)
[2022-06-28] MEDS ORDERED: IPRATROPIUM BROMIDE (0.02%) 0.5MG/2.5ML NEB HHN PRN (10:30)
[2022-06-28] MEDS ORDERED: ALBUTEROL (0.083%) 2.5MG/3ML NEB HHN PRN (10:30)
[2022-06-28 12:30] VITALS: BP 116/76
[2022-06-28 14:23] VITALS: BP 116/76
== END 2022-06-28 15:45 | disposition home or self-care (01) | DRG 194 ==
LOC: ER 12:52 → MICUSO 20:40 → EDBEDREQSVC 22:26 → EDBEDREQTM 22:26 → CVICU 06-27 01:50 → 7EST 06-27 21:15
PROVIDERS: ADMIT Internal Medicine; ATTEND Internal Medicine
DX: I13.0 Hypertensive heart and chronic kidney disease with heart failure and stage 1 through stage 4 chronic kidney disease, or unspecified chronic kidney disease (principal); N17.9 Acute kidney failure, unspecified; I31.39 Other pericardial effusion (noninflammatory); I27.20 Pulmonary hypertension, unspecified; E46 Unspecified protein-calorie malnutrition; D63.8 Anemia in other chronic diseases classified elsewhere; I25.2 Old myocardial infarction; I50.23 Acute on chronic systolic (congestive) heart failure; F17.200 Nicotine dependence, unspecified, uncomplicated; D50.9 Iron deficiency anemia, unspecified; E78.5 Hyperlipidemia, unspecified; J45.909 Unspecified asthma, uncomplicated; N18.9 Chronic kidney disease, unspecified; Z20.822 Contact with and (suspected) exposure to COVID-19; J44.9 Chronic obstructive pulmonary disease, unspecified; Z68.23 Body mass index [BMI] 23.0-23.9, adult; Z91.14 Patient's other noncompliance with medication regimen; Z91.199 Patient's noncompliance with other medical treatment and regimen due to unspecified reason; Z79.82 Long term (current) use of aspirin; Z79.899 Other long term (current) drug therapy; Z87.01 Personal history of pneumonia (recurrent)
CPT/HCPCS: 36415; 36600; 71045; 76700; 80048; 80053; 80061; 80305; 81003; 82375; 82550; 82553; 82607; 82728; 82746; 82805; 83010; 83540; 83550; 83605; 83880; 84145; 84439; 84443; 84484; 85025; 85044; 87426; 87804; 93005; 93306; 93970; 94640; 99291; C9803; J1650; J1940; J3490; J7626

== ENCOUNTER 2024-07-25 02:17 | Inpatient (IN) | payer MEDICAID, OTHER ==
[2024-07-25] VITALS (58 sets, daily range): BP systolic 116–229; BP diastolic 69–155; PULSE 70–113; RESP 14–25; TEMP 36.4–36.7; O2SAT 90–98
[~2024-07-25] VITALS: Ht 170.2 cm; Wt 82.6 kg
[~2024-07-25 02:17] MED LIST changes: -AMLO10TA80 PO; +AMLO5TAB88 PO; +ASPI-1406 PO; +ATOR40TA70 PO; +CLON0.2T MT; +CLON1PAT11 TD; -COR6 PO; +EMPA10TA PO; -HYDR-4135 PO; +HYDR100T11 PO; +NICO-645 TP; -POTA-189 MT; +SODI650T PO
[2024-07-25] MEDS: ACETAMINOPHEN 325MG TABLET PO ONE (03:05)
[2024-07-25] MEDS: HYDRALAZINE 20MG/ML VIAL IV NR (03:47)
[2024-07-25] MEDS: MORPHINE SULFATE 4 MG/ML INJ (FOR IV/IM USE) IV ONE (03:54)
[2024-07-25 04:03] LABS: BASOPHILS % 0.7 % (0.0-2.0); DIFFERENTIAL COMMENT 0; EOSINOPHILS % 1.6 % (0.0-5.0); HEMATOCRIT. 31.9 % (42.0-52.0); HEMOGLOBIN. 9.6 g/dL (14.0-18.0); LYMPHOCYTES % 12.9 % (20.0-50.0); MEAN CORPUSCULAR HGB CONC 30.2 g/dL (31.0-37.0); MEAN CORPUSCULAR VOLUME 79.3 fL (80.0-94.0); MEAN PLATELET VOLUME 7.3 fl (7.4-10.4); MONOCYTES % 9.2 % (2.0-8.0); NEUTROPHILS % 75.6 % (40.0-76.0); PLATELET 250 x1000/uL (130-400); RED BLOOD CELL COUNT 4.02 mill/uL (4.7-6.1); RED CELL DISTRIBUTION WIDTH 20.8 % (11.6-14.6); WHITE BLOOD COUNT 6.5 x1000/uL (4.5-11.0)
[2024-07-25 04:09] LABS: CHLORIDE 111 mEq/L (98-107); POTASSIUM 4.8 mEq/L (3.5-5.1); SODIUM 144 mEq/L (136-145)
[2024-07-25 04:10] LABS: CARBON DIOXIDE 21 mEq/L (21-32)
[2024-07-25 04:15] LABS: CREATININE 4.4 mg/dL (0.6-1.3); GLUCOSE 106 mg/dL (70-105); UREA NITROGEN BLOOD 44 mg/dL (9-23)
[2024-07-25 04:16] LABS: ETHANOL BLOOD < 10 mg/dL (<10)
[2024-07-25 04:21] LABS: TROPONIN I HIGH SENSITIVITY 173 ng/L (3.0-53)
[2024-07-25 04:23] LABS: INR 1.1; PROTHROMBIN TIME 11.4 sec (9.6-11.0)
[2024-07-25] MEDS: NITROGLYCERIN OINT 1GM/INCH UDPKT TD NR (06:49)
[2024-07-25] MEDS: FUROSEMIDE 40MG/4ML VIAL IVP NR ×2 (06:51→16:30)
[2024-07-25] MEDS: ASPIRIN 325MG EC TABLET PO NR (06:51)
[2024-07-25] MEDS: NICARDIPINE 40MG/200ML PREMIX 200 ML IV PRN ×2 (09:53→11:27)
[2024-07-25] MEDS ORDERED: ACETAMINOPHEN 325MG TABLET PO PRN (10:00)
[2024-07-25] MEDS ORDERED: IPRATROPIUM/ALBUTEROL 0.5-3(2.5)MG/3ML NEB HHN PRN (10:00)
[2024-07-25 11:16] LABS: CLARITY URINE CLEAR (CLEAR); COLOR URINE YELLOW (YELLOW); GLUCOSE URINE 1+ (NEGATIVE); KETONES URINE NEGATIVE (NEGATIVE); LEUKOCYTE ESTERASE URINE NEGATIVE (NEGATIVE); NITRITE URINE NEGATIVE (NEGATIVE); OCCULT BLOOD URINE TRACE (NEGATIVE); PROTEIN URINE 1+ (NEGATIVE); SPECIFIC GRAVITY URINE 1.007 (1.005-1.030); UROBILINOGEN URINE 0.2 E.U./dL (0.2-1.0)
[2024-07-25 11:31] LABS: *AMPHETAMINES SCREEN URINE NEGATIVE (NEGATIVE); *BARBITURATES SCREEN URINE NEGATIVE (NEGATIVE); *BENZODIAZEPINES SCREEN URINE NEGATIVE (NEGATIVE); *COCAINE SCREEN URINE NEGATIVE (NEGATIVE); METHADONE URINE SCREEN NEGATIVE (NEGATIVE)
[2024-07-25 11:32] LABS: CANNABINOID URINE SCREEN NEGATIVE (NEGATIVE); ECSTASY MDMA SCREEN URINE NEGATIVE (NEGATIVE); OPIATES URINE SCREEN NEGATIVE (NEGATIVE); PHENCYCLIDINE URINE SCREEN NEGATIVE (NEGATIVE)
[2024-07-25 11:48] LABS: BACTERIA URINE NONE SEEN; RBC URINE 0-2 /hpf (0-2); SQUAMOUS EPITHELIAL CELL URINE NONE SEEN /lpf (RARE/1+); WBC URINE 0-2 /hpf (0-2); YEAST URINE NONE SEEN
[2024-07-25] MEDS: ENOXAPARIN 30MG/0.3ML SYR SUBCUT SCH (12:15)
[2024-07-25] MEDS: HYDRALAZINE HCL 100MG TABLET PO SCH (13:11)
[2024-07-25] MEDS: ACETAMINOPHEN 325MG TABLET PO PRN (14:16)
[2024-07-25] MEDS ORDERED: CLONIDINE 0.1MG TABLET PO SCH (16:00)
[2024-07-25] MEDS ORDERED: HYDROCHLOROTHIAZIDE 25MG TABLET PO SCH (16:15)
[2024-07-25] MEDS ORDERED: NALOXONE HCL 0.4MG/ML VIAL IV PRN (16:30)
[2024-07-25] MEDS: HYDROCODONE/ACETAMINOPHEN 5/325MG TABLET PO PRN (16:30)
[2024-07-25] MEDS: NIFEDIPINE XL 90MG TAB PO SCH (17:14)
[2024-07-25] MEDS: ONDANSETRON HCL 4MG/2ML INJ IV PRN (17:14)
[2024-07-25 17:58] LABS: CREATINE KINASE MB FRACTION 4.5 ng/mL (0.5-3.6)
[2024-07-25] MEDS ORDERED: AMLODIPINE 10MG TABLET PO SCH (21:00)
[2024-07-25] MEDS: ATORVASTATIN CALCIUM 40MG TABLET PO SCH (21:09)
[2024-07-25] MEDS: ZOLPIDEM TARTRATE 5MG TABLET PO PRN (21:09)
[2024-07-26] VITALS (65 sets, daily range): BP systolic 107–161; BP diastolic 77–107; PULSE 73–92; RESP 11–25; TEMP 36.7–37.1; O2SAT 89–98
[2024-07-26 00:27] LABS: CREATINE KINASE MB FRACTION 5.1 ng/mL (0.5-3.6)
[2024-07-26 06:03] LABS: BASOPHILS % 0.7 % (0.0-2.0); DIFFERENTIAL COMMENT 0; EOSINOPHILS % 1.6 % (0.0-5.0); HEMOGLOBIN. 8.6 g/dL (14.0-18.0); LYMPHOCYTES % 12.3 % (20.0-50.0); MEAN CORPUSCULAR HGB CONC 30.5 g/dL (31.0-37.0); MEAN CORPUSCULAR VOLUME 78.7 fL (80.0-94.0); MEAN PLATELET VOLUME 7.8 fl (7.4-10.4); MONOCYTES % 11.4 % (2.0-8.0); PLATELET 262 x1000/uL (130-400); RED BLOOD CELL COUNT 3.56 mill/uL (4.7-6.1); WHITE BLOOD COUNT 7.2 x1000/uL (4.5-11.0)
[2024-07-26 06:31] LABS: CALCIUM 8.8 mg/dL (8.7-10.4); POTASSIUM 4.9 mEq/L (3.5-5.1)
[2024-07-26 06:36] LABS: ALBUMIN 3.7 g/dL (3.2-4.8)
[2024-07-26 06:44] LABS: CREATININE 5.1 mg/dL (0.6-1.3)
[2024-07-26] MEDS ORDERED: EMPAGLIFLOZIN 10MG TABLET PO SCH (09:00)
[2024-07-26] MEDS ORDERED: AMLODIPINE 10MG TABLET PO SCH (09:00)
[2024-07-26] MEDS: CITRIC ACID/SODIUM CITRATE SOLN 30ML UDC PO SCH (09:06)
[2024-07-26] MEDS: ASPIRIN 81MG TABLET PO SCH (09:06)
[2024-07-26] MEDS: PANTOPRAZOLE SODIUM 40 MG/VIAL IV SCH (14:35)
[2024-07-26] MEDS: MAGNESIUM/ALUMINUM HYDROXIDE/SIMETHICONE 30ML UDC PO PRN (20:02)
[2024-07-26] MEDS: HYDRALAZINE HCL 25MG TABLET PO SCH (21:12)
[2024-07-27] VITALS (35 sets, daily range): BP systolic 105–160; BP diastolic 74–98; PULSE 68–95; RESP 14–22; TEMP 36.1–36.9; O2SAT 88–100
[2024-07-27 00:31] LABS: TROPONIN I HIGH SENSITIVITY 409 ng/L (3.0-53)
[2024-07-27 06:40] LABS: POTASSIUM 5.7 mEq/L (3.5-5.1)
[2024-07-27 06:41] LABS: CALCIUM 9.3 mg/dL (8.7-10.4)
[2024-07-27 06:42] LABS: HEMATOCRIT 30.4 % (42.0-52.0); HEMOGLOBIN 9.1 g/dL (14.0-18.0); MEAN CORPUSCULAR HEMOGLOBIN 24.1 pg (28.0-32.0); MEAN CORPUSCULAR HGB CONC 29.9 g/dL (31.0-37.0); MEAN CORPUSCULAR VOLUME 80.5 fL (80.0-94.0); PLATELET 358 x1000/uL (130-400); RED BLOOD CELL COUNT 3.78 mill/uL (4.7-6.1); RED CELL DISTRIBUTION WIDTH 22.1 % (11.6-14.6); WHITE BLOOD COUNT 8.7 x1000/uL (4.5-11.0)
[2024-07-27] MEDS: SODIUM POLYSTYRENE SULFONATE 15 G/60 ML BOT PO NR (08:23)
[2024-07-27 08:38] LABS: CREATININE 5.7 mg/dL (0.6-1.3)
[2024-07-28] VITALS: BP 150/87; PULSE 70; RESP 20; TEMP 37.1; O2SAT 95
[2024-07-28 04:00] VITALS: BP 144/98; PULSE 76; RESP 18; TEMP 36.2; O2SAT 97
[2024-07-28 08:29] VITALS: BP 160/92; PULSE 86; RESP 20; TEMP 36.6; O2SAT 96
[2024-07-28 08:39] LABS: BASOPHILS % 0.3 % (0.0-2.0); DIFFERENTIAL COMMENT 0; EOSINOPHILS % 0.5 % (0.0-5.0); HEMATOCRIT. 29.6 % (42.0-52.0); HEMOGLOBIN. 8.8 g/dL (14.0-18.0); LYMPHOCYTES % 8.5 % (20.0-50.0); MEAN CORPUSCULAR HEMOGLOBIN 23.5 pg (28.0-32.0); MEAN CORPUSCULAR HGB CONC 29.9 g/dL (31.0-37.0); MEAN CORPUSCULAR VOLUME 78.4 fL (80.0-94.0); MEAN PLATELET VOLUME 7.8 fl (7.4-10.4); MONOCYTES % 12.7 % (2.0-8.0); PLATELET 282 x1000/uL (130-400); RED BLOOD CELL COUNT 3.77 mill/uL (4.7-6.1); RED CELL DISTRIBUTION WIDTH 21.5 % (11.6-14.6); WHITE BLOOD COUNT 7.9 x1000/uL (4.5-11.0)
[2024-07-28 08:42] LABS: CALCIUM 9.3 mg/dL (8.7-10.4); CARBON DIOXIDE 21 mEq/L (21-32); CHLORIDE 106 mEq/L (98-107); POTASSIUM 5.8 mEq/L (3.5-5.1); SODIUM 138 mEq/L (136-145)
[2024-07-28 08:48] LABS: GLUCOSE 77 mg/dL (70-105); UREA NITROGEN BLOOD 60 mg/dL (9-23)
[2024-07-28 08:50] LABS: PHOSPHORUS 5.3 mg/dL (2.5-4.9)
[2024-07-28 09:17] LABS: CREATININE 6.3 mg/dL (0.6-1.3)
[2024-07-28 09:36] LABS: TROPONIN I HIGH SENSITIVITY 462 ng/L (3.0-53)
[2024-07-28] MEDS ORDERED: DEXTROSE 50% WATER 50ML SYRINGE IV NR (10:00)
[2024-07-28] MEDS: SODIUM POLYSTYRENE SULFONATE 15 G/60 ML BOT PO NR (10:31)
[2024-07-28] MEDS: FUROSEMIDE 100MG/10ML VIAL IV NR (10:32)
[2024-07-28] MEDS: INSULIN REGULAR (HUMULIN R) 1000UNITS/10ML VIAL IV NR (10:33)
[2024-07-28 11:56] VITALS: BP 178/93; PULSE 91; RESP 19; TEMP 36.7; O2SAT 96
[2024-07-28] MEDS: CALCIUM CHLORIDE 1GM/10ML SYR IV NR (12:06)
[2024-07-28 15:54] VITALS: BP 165/87; PULSE 94; RESP 18; TEMP 36.6; O2SAT 97
[2024-07-28 16:55] LABS: POTASSIUM 4.9 mEq/L (3.5-5.1)
[2024-07-28 16:57] LABS: CALCIUM 9.4 mg/dL (8.7-10.4)
[2024-07-28 17:02] LABS: CREATININE 6.8 mg/dL (0.6-1.3)
[2024-07-28] MEDS: ALBUTEROL (0.083%) 2.5MG/3ML NEB HHN NR (18:40)
[2024-07-28 20:00] VITALS: BP 178/88; PULSE 109; RESP 19; TEMP 36.4; O2SAT 98
[2024-07-28] MEDS: HYDRALAZINE HCL 100MG TABLET PO SCH (21:56)
[2024-07-29] VITALS (8 sets, daily range): BP systolic 135–193; BP diastolic 73–100; PULSE 79–114; RESP 18–20; TEMP 35.7–36.8; O2SAT 93–99
[2024-07-29] MEDS: SODIUM CHLORIDE 0.45% 1,000 ML IV SCH (02:00)
[2024-07-29] MEDS: LABETALOL 5MG/ML 4ML INJ IV PRN (05:05)
[2024-07-29 06:48] LABS: POTASSIUM 4.8 mEq/L (3.5-5.1)
[2024-07-29 06:50] LABS: CALCIUM 8.5 mg/dL (8.7-10.4)
[2024-07-29 07:00] LABS: BASOPHILS % 0.2 % (0.0-2.0); DIFFERENTIAL COMMENT 0; EOSINOPHILS % 0.9 % (0.0-5.0); LYMPHOCYTES % 8.4 % (20.0-50.0); MEAN CORPUSCULAR HEMOGLOBIN 23.8 pg (28.0-32.0); MEAN CORPUSCULAR HGB CONC 30.7 g/dL (31.0-37.0); MEAN CORPUSCULAR VOLUME 77.5 fL (80.0-94.0); MEAN PLATELET VOLUME 7.5 fl (7.4-10.4); MONOCYTES % 11.6 % (2.0-8.0); NEUTROPHILS % 78.9 % (40.0-76.0); PLATELET 236 x1000/uL (130-400); RED BLOOD CELL COUNT 3.35 mill/uL (4.7-6.1); RED CELL DISTRIBUTION WIDTH 20.8 % (11.6-14.6); WHITE BLOOD COUNT 7.5 x1000/uL (4.5-11.0)
[2024-07-29 07:04] LABS: CREATININE 6.8 mg/dL (0.6-1.3)
[2024-07-29] MEDS: DILTIAZEM HCL 90MG TABLET PO SCH (09:19)
[2024-07-29] MEDS: NITROGLYCERIN OINT 1GM/INCH UDPKT TD SCH (14:29)
[2024-07-30] VITALS (7 sets, daily range): BP systolic 140–154; BP diastolic 76–83; PULSE 74–89; RESP 18–20; TEMP 35.8–36.7; O2SAT 92–96
[2024-07-30 07:06] LABS: POTASSIUM 5.6 mEq/L (3.5-5.1)
[2024-07-30 07:07] LABS: CALCIUM 8.4 mg/dL (8.7-10.4)
[2024-07-30 07:20] LABS: BASOPHILS % 0.4 % (0.0-2.0); DIFFERENTIAL COMMENT 0; EOSINOPHILS % 1.2 % (0.0-5.0); HEMATOCRIT. 26.5 % (42.0-52.0); HEMOGLOBIN. 8.2 g/dL (14.0-18.0); LYMPHOCYTES % 10.8 % (20.0-50.0); MEAN CORPUSCULAR HEMOGLOBIN 23.8 pg (28.0-32.0); MEAN CORPUSCULAR VOLUME 76.9 fL (80.0-94.0); MEAN PLATELET VOLUME 7.7 fl (7.4-10.4); MONOCYTES % 12.2 % (2.0-8.0); NEUTROPHILS % 75.4 % (40.0-76.0); PLATELET 286 x1000/uL (130-400); RED BLOOD CELL COUNT 3.45 mill/uL (4.7-6.1); WHITE BLOOD COUNT 7.8 x1000/uL (4.5-11.0)
[2024-07-30 07:30] LABS: CREATININE 7.1 mg/dL (0.6-1.3)
[2024-07-30] MEDS ORDERED: SODIUM POLYSTYRENE SULFONATE 15 G/60 ML BOT PO ONE (08:30)
[2024-07-30] MEDS: SODIUM ZIRCONIUM CYCLOSILICATE 10GM/PACKET PO NR (09:10)
[2024-07-30] MEDS: CLONIDINE 0.1MG TABLET PO SCH (09:29)
[2024-07-30 16:49] LABS: POTASSIUM 4.8 mEq/L (3.5-5.1)
[2024-07-30 16:50] LABS: CALCIUM 8.2 mg/dL (8.7-10.4)
[2024-07-30 17:04] LABS: CREATININE 7.1 mg/dL (0.6-1.3)
[2024-07-31] VITALS: BP 133/94; PULSE 81; RESP 20; TEMP 36.4; O2SAT 94
[2024-07-31 04:00] VITALS: BP 162/76; PULSE 78; RESP 20; TEMP 36.5; O2SAT 97
[2024-07-31 08:00] LABS: CALCIUM 8.3 mg/dL (8.7-10.4); POTASSIUM 4.9 mEq/L (3.5-5.1)
[2024-07-31 08:11] LABS: CREATININE 6.8 mg/dL (0.6-1.3)
[2024-07-31 08:34] LABS: BASOPHILS % 0.3 % (0.0-2.0); DIFFERENTIAL COMMENT 0; EOSINOPHILS % 1.2 % (0.0-5.0); HEMATOCRIT. 23.7 % (42.0-52.0); HEMOGLOBIN. 7.4 g/dL (14.0-18.0); HEPATITIS B SURFACE ANTIGEN NEGATIVE (Negative); MEAN CORPUSCULAR HGB CONC 31.3 g/dL (31.0-37.0); MEAN CORPUSCULAR VOLUME 76.8 fL (80.0-94.0); MEAN PLATELET VOLUME 7.5 fl (7.4-10.4); MONOCYTES % 12.4 % (2.0-8.0); NEUTROPHILS % 78.1 % (40.0-76.0); PLATELET 224 x1000/uL (130-400); RED BLOOD CELL COUNT 3.09 mill/uL (4.7-6.1); RED CELL DISTRIBUTION WIDTH 20.1 % (11.6-14.6); WHITE BLOOD COUNT 7.2 x1000/uL (4.5-11.0)
[2024-07-31 08:54] LABS: HEPATITIS A AB IGM NEGATIVE (Negative)
[2024-07-31 08:55] LABS: HEPATITIS B CORE AB IGM NEGATIVE (Negative)
[2024-07-31 08:56] LABS: HEPATITIS C AB NON REACTIVE (Neg) (Negative)
[2024-07-31 12:00] VITALS: BP 164/93; PULSE 76; RESP 20; TEMP 36.7; O2SAT 95
[2024-07-31] MEDS: DILTIAZEM HCL 90MG TABLET PO SCH (15:37)
[2024-07-31 16:00] VITALS: BP 157/93; PULSE 97; RESP 18; TEMP 36.4; O2SAT 95
[2024-07-31 20:00] VITALS: BP 165/88; PULSE 84; RESP 18; TEMP 36.8; O2SAT 96
[2024-08-01] VITALS: BP 162/104; PULSE 109; RESP 19; TEMP 36.7; O2SAT 95
[2024-08-01 04:00] VITALS: BP 159/78; PULSE 111; RESP 18; TEMP 36.4; O2SAT 96
[2024-08-01 06:51] LABS: CALCIUM 8.5 mg/dL (8.7-10.4); POTASSIUM 4.2 mEq/L (3.5-5.1)
[2024-08-01 07:06] LABS: HEMATOCRIT. 24.1 % (42.0-52.0); HEMOGLOBIN. 7.5 g/dL (14.0-18.0); MEAN CORPUSCULAR HEMOGLOBIN 23.9 pg (28.0-32.0); MEAN CORPUSCULAR HGB CONC 31.2 g/dL (31.0-37.0); MEAN CORPUSCULAR VOLUME 76.6 fL (80.0-94.0); MEAN PLATELET VOLUME 7.6 fl (7.4-10.4); PLATELET 197 x1000/uL (130-400); RED BLOOD CELL COUNT 3.14 mill/uL (4.7-6.1); RED CELL DISTRIBUTION WIDTH 19.7 % (11.6-14.6); WHITE BLOOD COUNT 7.2 x1000/uL (4.5-11.0)
[2024-08-01 07:27] LABS: CREATININE 6.4 mg/dL (0.6-1.3)
[2024-08-01 07:36] LABS: DIFFERENTIAL COMMENT 1
[2024-08-01 08:00] VITALS: BP 149/73; PULSE 79; RESP 18; TEMP 36.4; O2SAT 95
[2024-08-01 12:15] VITALS: BP 168/97; PULSE 78; RESP 18; TEMP 36.7; O2SAT 95
[2024-08-01] MEDS: CLONIDINE 0.2MG TABLET PO SCH (14:36)
[2024-08-01 15:05] LABS: ANISOCYTOSIS 2+; HYPOCHROMASIA 1+; MICROCYTOSIS 1+; PLATELET ESTIMATE NORMAL
[2024-08-01 16:18] VITALS: BP 138/83; PULSE 81; RESP 18; TEMP 36.7; O2SAT 98
[2024-08-01 20:00] VITALS: BP 173/108; PULSE 74; RESP 20; TEMP 36.2; O2SAT 99
[2024-08-02] VITALS: BP 151/83; PULSE 76; RESP 18; TEMP 37; O2SAT 96
[2024-08-02] MEDS: MELATONIN 3MG TABLET PO NR (01:50)
[2024-08-02 04:00] VITALS: BP 128/83; PULSE 65; RESP 18; TEMP 36.9; O2SAT 97
[2024-08-02 06:13] LABS: HEMATOCRIT. 23.8 % (42.0-52.0); HEMOGLOBIN. 7.3 g/dL (14.0-18.0); MEAN CORPUSCULAR HEMOGLOBIN 23.7 pg (28.0-32.0); MEAN CORPUSCULAR HGB CONC 30.9 g/dL (31.0-37.0); MEAN CORPUSCULAR VOLUME 76.8 fL (80.0-94.0); MEAN PLATELET VOLUME 7.5 fl (7.4-10.4); PLATELET 194 x1000/uL (130-400); RED CELL DISTRIBUTION WIDTH 19.6 % (11.6-14.6); WHITE BLOOD COUNT 5.3 x1000/uL (4.5-11.0)
[2024-08-02 06:25] LABS: POTASSIUM 4.2 mEq/L (3.5-5.1)
[2024-08-02 06:26] LABS: CALCIUM 8.5 mg/dL (8.7-10.4)
[2024-08-02 06:39] LABS: CREATININE 6.3 mg/dL (0.6-1.3)
[2024-08-02 07:00] LABS: DIFFERENTIAL COMMENT 1
[2024-08-02 08:00] VITALS: BP 184/112; PULSE 75; RESP 20; TEMP 36.1; O2SAT 97
[2024-08-02] MEDS: CLONIDINE 0.3MG TABLET PO PRN (09:12)
[2024-08-02] MEDS: HYDRALAZINE 20MG/ML VIAL IV NR (11:27)
[2024-08-02 12:00] VITALS: BP 138/76; PULSE 61; RESP 20; TEMP 36.3; O2SAT 99
[2024-08-02 16:00] VITALS: BP 152/87; PULSE 62; RESP 20; TEMP 36.2; O2SAT 100
[2024-08-02 18:01] LABS: ANISOCYTOSIS 1+; HYPOCHROMASIA 1+; MICROCYTOSIS 1+; PLATELET ESTIMATE NORMAL
[2024-08-02 20:00] VITALS: BP 150/86; PULSE 51; RESP 20; TEMP 36.4; O2SAT 98
[2024-08-02] MEDS ORDERED: IPRATROPIUM/ALBUTEROL 0.5-3(2.5)MG/3ML NEB HHN PRN (20:45)
[2024-08-02] MEDS: MELATONIN 3MG TABLET PO SCH (21:25)
[2024-08-02] MEDS: FUROSEMIDE 40MG/4ML VIAL IVP NR (21:25)
[2024-08-02] MEDS ORDERED: NITROGLYCERIN OINT 1GM/INCH UDPKT TD SCH (22:00)
[2024-08-03] VITALS (7 sets, daily range): BP systolic 133–181; BP diastolic 71–104; PULSE 48–81; RESP 20–22; TEMP 35.9–36.7; O2SAT 96–100
[2024-08-03 07:20] LABS: POTASSIUM 4.3 mEq/L (3.5-5.1)
[2024-08-03 07:23] LABS: CALCIUM 8.8 mg/dL (8.7-10.4)
[2024-08-03 07:30] LABS: PHOSPHORUS 4.8 mg/dL (2.5-4.9)
[2024-08-03 07:45] LABS: CREATININE 5.8 mg/dL (0.6-1.3)
[2024-08-03 08:06] LABS: HEMATOCRIT. 26.3 % (42.0-52.0); HEMOGLOBIN. 7.9 g/dL (14.0-18.0); MEAN CORPUSCULAR HEMOGLOBIN 23.6 pg (28.0-32.0); MEAN CORPUSCULAR HGB CONC 30.1 g/dL (31.0-37.0); MEAN CORPUSCULAR VOLUME 78.2 fL (80.0-94.0); MEAN PLATELET VOLUME 7.8 fl (7.4-10.4); PLATELET 201 x1000/uL (130-400); RED BLOOD CELL COUNT 3.36 mill/uL (4.7-6.1); RED CELL DISTRIBUTION WIDTH 19.9 % (11.6-14.6); WHITE BLOOD COUNT 5.4 x1000/uL (4.5-11.0)
[2024-08-03 08:18] LABS: DIFFERENTIAL COMMENT 1
[2024-08-03 13:38] LABS: ANISOCYTOSIS 2+; HYPOCHROMASIA 2+; MICROCYTOSIS 2+; PLATELET ESTIMATE NORMAL
[2024-08-03] MEDS: DILTIAZEM HCL 60MG TABLET PO SCH (13:46)
[2024-08-03] MEDS: HYDRALAZINE 20MG/ML VIAL IV PRN (14:17)
[2024-08-03] MEDS: ISOSORB DINIT/HYDRALAZINE HCL 20/37.5MG TABLET PO SCH (16:19)
[2024-08-04] VITALS: BP 156/100; PULSE 83; RESP 20; TEMP 36.3; O2SAT 99
[2024-08-04 04:00] VITALS: BP 154/98; PULSE 82; RESP 19; TEMP 36.4; O2SAT 98
[2024-08-04 06:17] LABS: BASOPHILS % 0.5 % (0.0-2.0); DIFFERENTIAL COMMENT 0; EOSINOPHILS % 2.7 % (0.0-5.0); HEMOGLOBIN. 7.6 g/dL (14.0-18.0); LYMPHOCYTES % 8.9 % (20.0-50.0); MEAN CORPUSCULAR HEMOGLOBIN 23.6 pg (28.0-32.0); MEAN CORPUSCULAR HGB CONC 30.5 g/dL (31.0-37.0); MEAN CORPUSCULAR VOLUME 77.4 fL (80.0-94.0); MEAN PLATELET VOLUME 7.3 fl (7.4-10.4); MONOCYTES % 14.2 % (2.0-8.0); NEUTROPHILS % 73.7 % (40.0-76.0); PLATELET 217 x1000/uL (130-400); RED BLOOD CELL COUNT 3.23 mill/uL (4.7-6.1); RED CELL DISTRIBUTION WIDTH 19.3 % (11.6-14.6); WHITE BLOOD COUNT 6.6 x1000/uL (4.5-11.0)
[2024-08-04 06:18] LABS: POTASSIUM 4.3 mEq/L (3.5-5.1)
[2024-08-04 06:19] LABS: CALCIUM 8.2 mg/dL (8.7-10.4)
[2024-08-04 06:33] LABS: CREATININE 5.2 mg/dL (0.6-1.3)
[2024-08-04 08:00] VITALS: BP 139/93; PULSE 83; RESP 20; TEMP 36.7; O2SAT 98
[2024-08-04 12:00] VITALS: BP 171/102; PULSE 78; RESP 19; TEMP 36.7; O2SAT 97
[2024-08-04] MEDS: ISOSORB DINIT/HYDRALAZINE HCL 20/37.5MG TABLET PO SCH (13:03)
[2024-08-04] MEDS: DILTIAZEM HCL 90MG TABLET PO SCH (13:04)
[2024-08-04 16:00] VITALS: BP 138/73; PULSE 81; RESP 19; TEMP 36.7; O2SAT 97
[2024-08-04 20:00] VITALS: BP 167/101; PULSE 82; RESP 18; TEMP 36.2; O2SAT 98
[2024-08-05] VITALS: BP 153/84; PULSE 76; RESP 20; TEMP 36.4; O2SAT 97
[2024-08-05 04:00] VITALS: BP 133/91; PULSE 70; RESP 19; TEMP 36.4; O2SAT 97
[2024-08-05 04:54] LABS: HEMATOCRIT. 23.4 % (42.0-52.0); HEMOGLOBIN. 7.2 g/dL (14.0-18.0); MEAN CORPUSCULAR HEMOGLOBIN 23.7 pg (28.0-32.0); MEAN CORPUSCULAR HGB CONC 30.9 g/dL (31.0-37.0); MEAN CORPUSCULAR VOLUME 76.9 fL (80.0-94.0); MEAN PLATELET VOLUME 7.6 fl (7.4-10.4); PLATELET 208 x1000/uL (130-400); RED BLOOD CELL COUNT 3.05 mill/uL (4.7-6.1); RED CELL DISTRIBUTION WIDTH 19.3 % (11.6-14.6); WHITE BLOOD COUNT 7.3 x1000/uL (4.5-11.0)
[2024-08-05 04:58] LABS: POTASSIUM 4.8 mEq/L (3.5-5.1)
[2024-08-05 04:59] LABS: CALCIUM 8.4 mg/dL (8.7-10.4)
[2024-08-05 05:06] LABS: DIFFERENTIAL COMMENT 1
[2024-08-05 05:12] LABS: CREATININE 5.3 mg/dL (0.6-1.3)
[2024-08-05 08:00] VITALS: BP_SYST 108; BP_SYST 133; BP_DIAS 47; BP_DIAS 70; PULSE 69; PULSE 71; RESP 18; TEMP 36.4; TEMP 36.9; O2SAT 100; O2SAT 96
[2024-08-05] MEDS: FUROSEMIDE 40MG TABLET PO SCH (14:26)
[2024-08-05 15:45] LABS: PLATELET ESTIMATE NORMAL
[2024-08-05 16:08] VITALS: BP 163/105; PULSE 110; RESP 18; TEMP 36.7; O2SAT 95
[2024-08-05 20:00] VITALS: BP 133/96; PULSE 67; RESP 20; TEMP 36.3; O2SAT 98
[2024-08-06] VITALS: BP 152/92; PULSE 84; RESP 20; TEMP 36.2; O2SAT 98
[2024-08-06 04:00] VITALS: BP 141/86; PULSE 66; RESP 19; TEMP 36.2; O2SAT 98
[2024-08-06 07:50] LABS: POTASSIUM 5.1 mEq/L (3.5-5.1)
[2024-08-06 07:51] LABS: CALCIUM 8.4 mg/dL (8.7-10.4)
[2024-08-06 08:00] VITALS: BP 132/85; PULSE 54; RESP 17; TEMP 36.7; O2SAT 98
[2024-08-06 08:09] LABS: CREATININE 5.3 mg/dL (0.6-1.3)
[2024-08-06] MEDS: SODIUM ZIRCONIUM CYCLOSILICATE 10GM/PACKET PO NR (08:16)
[2024-08-06 08:24] LABS: BASOPHILS % 0.6 % (0.0-2.0); DIFFERENTIAL COMMENT 0; EOSINOPHILS % 1.8 % (0.0-5.0); LYMPHOCYTES % 10.7 % (20.0-50.0); MEAN CORPUSCULAR HEMOGLOBIN 23.7 pg (28.0-32.0); MEAN CORPUSCULAR HGB CONC 31.1 g/dL (31.0-37.0); MEAN CORPUSCULAR VOLUME 76.2 fL (80.0-94.0); MEAN PLATELET VOLUME 7.9 fl (7.4-10.4); MONOCYTES % 12.5 % (2.0-8.0); NEUTROPHILS % 74.4 % (40.0-76.0); PLATELET 209 x1000/uL (130-400); RED BLOOD CELL COUNT 2.89 mill/uL (4.7-6.1); RED CELL DISTRIBUTION WIDTH 19.2 % (11.6-14.6); WHITE BLOOD COUNT 7.2 x1000/uL (4.5-11.0)
[2024-08-06 08:33] LABS: HEMATOCRIT. 22.1 % (42.0-52.0); HEMOGLOBIN. 6.9 g/dL (14.0-18.0)
[2024-08-06 09:56] VITALS: BP 132/85; PULSE 54; TEMP 98.2; O2SAT 100
[2024-08-07] MEDS ORDERED: FAMOTIDINE 20MG/2ML VIAL IV SCH (09:00)
== END 2024-08-06 11:40 | disposition home or self-care (01) | DRG 194 ==
LOC: ER 02:17 → CVICU 06:04 → 7WST 07-27 14:55 → 6EST 08-05 19:50
PROVIDERS: ADMIT Internal Medicine; ATTEND Internal Medicine
DX: I13.2 Hypertensive heart and chronic kidney disease with heart failure and with stage 5 chronic kidney disease, or end stage renal disease (principal); N17.0 Acute kidney failure with tubular necrosis; I21.4 Non-ST elevation (NSTEMI) myocardial infarction; E87.20 Acidosis, unspecified; I27.20 Pulmonary hypertension, unspecified; D50.9 Iron deficiency anemia, unspecified; E11.22 Type 2 diabetes mellitus with diabetic chronic kidney disease; I16.1 Hypertensive emergency; I50.43 Acute on chronic combined systolic (congestive) and diastolic (congestive) heart failure; E87.5 Hyperkalemia; E78.5 Hyperlipidemia, unspecified; F17.200 Nicotine dependence, unspecified, uncomplicated; R80.9 Proteinuria, unspecified; R00.0 Tachycardia, unspecified; N18.5 Chronic kidney disease, stage 5; J45.909 Unspecified asthma, uncomplicated; Z79.82 Long term (current) use of aspirin; Z79.84 Long term (current) use of oral hypoglycemic drugs; Z79.899 Other long term (current) drug therapy; Z86.73 Personal history of transient ischemic attack (TIA), and cerebral infarction without residual deficits; Z91.148 Patient's other noncompliance with medication regimen for other reason; Z91.158 Patient's noncompliance with renal dialysis for other reason; I25.2 Old myocardial infarction
CPT/HCPCS: 36415; 71045; 80048; 80305; 80320; 81003; 82040; 82550; 82553; 82962; 83735; 83880; 84100; 84484; 85025; 85027; 86705; 86709; 87340; 93005; 93306; 93970; 94070; 94640; 94664; 98960; 99291; A4606; J0360; J1650; J1815; J1940; J2270; J2405; J2470; J3490; G0480

== ENCOUNTER 2024-08-26 10:31 | Emergency (ER) | payer OTHER ==
[~2024-08-26] VITALS: Ht 167.6 cm; Wt 68.0 kg
[2024-08-26 10:36] VITALS: O2SAT 100
[2024-08-26 11:08] LABS: BASOPHILS % 0.8 % (0.0-2.0); DIFFERENTIAL COMMENT 0; EOSINOPHILS % 6.5 % (0.0-5.0); HEMATOCRIT. 31.6 % (42.0-52.0); LYMPHOCYTES % 16.3 % (20.0-50.0); MEAN CORPUSCULAR HEMOGLOBIN 24.9 pg (28.0-32.0); MEAN CORPUSCULAR HGB CONC 31.6 g/dL (31.0-37.0); MEAN CORPUSCULAR VOLUME 78.9 fL (80.0-94.0); MEAN PLATELET VOLUME 6.9 fl (7.4-10.4); MONOCYTES % 12.1 % (2.0-8.0); NEUTROPHILS % 64.3 % (40.0-76.0); PLATELET 218 x1000/uL (130-400); RED CELL DISTRIBUTION WIDTH 21.3 % (11.6-14.6); WHITE BLOOD COUNT 5.1 x1000/uL (4.5-11.0)
[2024-08-26 11:34] LABS: CHLORIDE 101 mEq/L (98-107); POTASSIUM 3.9 mEq/L (3.5-5.1); SODIUM 140 mEq/L (136-145)
[2024-08-26 11:35] LABS: CARBON DIOXIDE 30 mEq/L (21-32)
[2024-08-26 11:36] LABS: CALCIUM 8.6 mg/dL (8.7-10.4)
[2024-08-26 11:40] LABS: GLUCOSE 122 mg/dL (70-105); UREA NITROGEN BLOOD 29 mg/dL (9-23)
[2024-08-26 11:45] LABS: TROPONIN I HIGH SENSITIVITY 120 ng/L (3.0-53)
[2024-08-26 13:08] VITALS: BP 176/106; PULSE 48; RESP 14; TEMP 36.8; O2SAT 100
== END 2024-08-26 13:42 | disposition left against medical advice (07) ==
LOC: ER 10:31
DX: R55 Syncope and collapse (principal); R00.1 Bradycardia, unspecified; R79.89 Other specified abnormal findings of blood chemistry; Z99.2 Dependence on renal dialysis; Z79.899 Other long term (current) drug therapy; Z79.82 Long term (current) use of aspirin
CPT/HCPCS: 36415; 71045; 80048; 84484; 85025; 93005; 99291